=== PATIENT | female | born 1980 ===

== ENCOUNTER 2020-07-30 13:09 | Inpatient (IN) | payer OTHER ==
[~2020-07-30] VITALS: Ht 160 cm; Wt 61.2 kg
[~2020-07-30 13:09] MED LIST: CIPRO500 MG; FAMOTIDINE20 MG; LIBRAX CAPSULE1 CA1; URETRON D/S TAB1 TAB
== END 2020-08-02 10:45 | disposition home or self-care (01) | DRG 866 ==
LOC: ER 13:09 → MEDJ 21:18
PROVIDERS: ADMIT Internal Medicine; ATTEND Internal Medicine
PROC: 30233R1 Transfusion of Nonautologous Platelets into Peripheral Vein, Percutaneous Approach (ICD-10-PCS; principal; 2020-07-31)
DX: A90 Dengue fever [classical dengue] (principal); D69.6 Thrombocytopenia, unspecified; N92.1 Excessive and frequent menstruation with irregular cycle; R53.1 Weakness; D64.9 Anemia, unspecified; Z20.822 Contact with and (suspected) exposure to COVID-19